=== PATIENT | female | born 1975 | race Two or more races ===

== ENCOUNTER 2025-05-20 08:51 | Day surgery (SDC) | payer MEDICARE, MEDICAID, SELFPAY ==
[2025-05-16 12:02] VITALS: BMI 33.3
--- OUTSIDE RECORDS SUMMARY | 2025-05-18 00:42 | XMS_ITS | Clinical Summary ---
Author Organization [facility] Address [address] [place] [address] Care Team Providers Care Executive Secretary Name Role Phone Raina Oliver MD Primary Care Provider [phone] Allergies Active Allergy Reactions Criticality Noted Date Comments Diphenhydramine 07/08/2020 Morphine 09/06/2019 Oxycodone-Acetaminophen 09/06/2019 Ketorolac Tromethamine 09/06/2019 Medications Medication Sig Dispensed Refills Start Date End Date Status gabapentin (NEURONTIN) 100 MG capsule TAKE 1 CAPSULE BY MOUTH THREE TIMES A DAY IF NEEDED FOR MUSCLE ACHES 0 08/15/2019 Active ibuprofen (ADVIL,MOTRIN) 800 MG tablet Take 800 mg by mouth. 0 07/18/2019 Active metoprolol succinate (TOPROL-XL) 24 hr tablet 25 mg Take 1 tablet (25 mg total) by mouth. 0 09/05/2019 Active omeprazole (PriLOSEC) 20 MG capsule Take 20 mg by mouth daily. 0 08/15/2019 Active sertraline (ZOLOFT) 50 MG tablet Take 1 tablet (50 mg total) by mouth. 0 09/05/2019 Active valACYclovir (VALTREX) 500 MG tablet 0 06/22/2019 Active ferrous sulfate 325 (65 FE) MG tablet Take 1 tablet (325 mg total) by mouth every morning with breakfast. 30 tablet 0 10/18/2019 Active cyclobenzaprine (FLEXERIL) 10 MG tablet Take 1 tablet (10 mg total) by mouth 3 (three) times a day as needed for muscle spasms. 0 Active acetaminophen (Tylenol) 325 MG tablet Take 2 tablets (650 mg total) by mouth every 6 (six) hours as needed for pain. 0 Active Active Problems Problem Noted Date Diagnosed Date Iron deficiency anemia 07/18/2019 Atypical chest pain 06/07/2019 Overview: Overview: Normal exercise stress test 05/2019 Obesity (BMI 30-39.9) 06/20/2017 Anogenital herpes simplex virus (HSV) infection 12/06/2016 Diverticulosis 12/06/2016 Sjogren's syndrome 08/12/2015 Overview: Overview: Follows with rheumatology Hydroxychloroquine 2018 - stopped GI side effects Methotrexate SC caused palpitations stopped by patients Anxiety and depression 08/08/2014 Overview: Overview: Following with psychology Fatty liver disease, nonalcoholic 08/08/2014 Overview: Overview: Hx of elevated LFTs Fibromyalgia 08/08/2014 Overview: Overview: Following with rheumatology and used to follow with Dr Pagan from pain management GERD (gastroesophageal reflux disease) 5 Hyperlipidemia 08/08/2014 Hypertension 08/08/2014 Insomnia 08/08/2014 Lumbar herniated disc 08/08/2014 Overview: Overview: Used to follow with Dr. Pagan at [facility] pain management, follows with physiatry lumbar epidural steroid injections has left sided radiculopathy recent MRI 04/2017 PCOS (polycystic ovarian syndrome) 08/08/2014 Vitamin D deficiency 08/08/2014 Family History Medical History Relation Name Comments Other Brother drug overdose Hypertension Father Stroke Father Hypertension Mother Stroke Mother Heart attack Sister Stroke Sister Relation Name Status Comments Brother Daughter Alive Father Alive Mother Alive Sister Alive Son Alive Social History Tobacco Use Types Packs/Day Years Used Date Smoking Tobacco: Never Smokeless Tobacco: Never Alcohol Use Standard Drinks/Week Comments No 0 (1 standard drink = 0.6 oz pur e alcohol) Sex and Gender Information Value Date Recorded Sex Assigned at Not on file Gender Identity Not on file Sexual Orientation Not on file Job Start Date Occupation Industry Not on file Not on file Not on file Last Filed Vital Signs Vital Sign Reading Time Taken Comments Blood Pressure 157/95 04/02/2024 12:40 PM EDT Pulse 81 04/02/2024 12:40 PM EDT Temperature 36.4 C (97.6 F) 04/02/2024 12:40 PM EDT Respiratory Rate - - Oxygen Saturation 100% 04/02/2024 12:40 PM EDT Inhaled Oxygen Concentration - - Weight 75.8 kg (167 lb) 04/02/2024 12:40 PM EDT Height 149.9 cm (4' 11 ) 04/02/2024 12:40 PM EDT Body Mass Index 33.73 04/02/2024 12:40 PM EDT Plan of Treatment Health Maintenance Due Date Last Done Comments Hepatitis B Vaccines (1 of 3 - 3-dose series) 1975 Hepatitis C Screening 1975 COVID-19 Vaccine (#1) 04/11/1976 Pneumococcal Vaccine (1 of 2 - PCV) 10/10/1981 Depression Screening 1987 BMI Counseling 10/10/1993 Preventative Health Evaluation 10/10/1993 DTap / Tdap / Td (1 - Tdap) 10/10/1994 Cervical Cancer Screening (P ap Smear) 10/10/1996 Colon Cancer Screening (Colonoscopy) 10/10/2020 Influenza Vaccine (#1) 2025 RSV Ped < 20 months Aged Out No longe r eligible based on patient's age to complete this topic Care Teams Executive Secretary Relationship Specialty Start Date End Date Raina Oliver MD [address] [facility] [address] [place] [address] PCP - General Internal Medicine 03/19/24
--- NOTE | ~2025-05-20 | FL_ITS ---
EXAMINATION: XR FLUOROSCOPY WITH IMAGES CLINICAL INFORMATION: Left L4 on L5 transforaminal KOBY COMPARISON: None available. TECHNIQUE: Fluoroscopy time: 19 seconds DAP: 5.6 mGycm2 Images: 1 FINDINGS: Fluoroscopy provided for procedure. There is a needle projected at the laterally at the level of the L4 and vertebral bodies with contrast injection. FL/FL guidance in OR IMPRESSION: Fluoroscopy provided for procedure. See procedure note for details. Electronically signed by: Lexx Reddy MD 05/20/2025 11:11 AM JORDYN
[2025-05-20] MEDS: Lactated Ringers 1,000 ML 80 ML IVCONT (09:36)
--- NOTE | 2025-05-20 09:45 | MHC.SHP ---
Pre-Procedural Eval Section A - 24 Hr Update-Section A only Date of Service: 05/20/25 The patient is an INPATIENT: No Section B - Complete if H&P > 30 days Chief Complaint: Radiculopathy, lumbar region Details of Present Illness: Chronic lower back pain and lumbar radiculitis Relevant Family History (Specify if Yes): No Relevant Social History: None Present Medications: see Short Stay Collaborative assessment Medical History: No relevant PMH History of Previous Operations: No relevant previous surgery Allergies: Allergies Allergy/AdvReac Type Severity Reaction Status Date / Time diphenhydramine Allergy Severe Difficulty Verified 05/20/25 09:07 Breathing ketorolac Allergy Severe Difficulty Verified 05/20/25 09:07 Breathing morphine Allergy Weakness, Verified 05/20/25 09:07 pre-syncope oxycodone Allergy Unknown Verified 05/20/25 09:07 Review of Systems Sugical H&P ROS: Negative: Constitution, Cardiovascular, Respiratory, Neurological, Psychiatric, Hem-Onc, Allergic/Immunologic, Gastrointestinal, Genitourinary, Musculoskeletal, Integumentary, Endocrine and Eyes/Ears/Nose/Throat Exam Surgical H&P Exam: Normal: HEENT, Normal: Heart, Normal: Lungs, Normal: Extremities, Normal: Abdomen, Normal: Skin and Normal: Neurological Plan Diagnosis/Plan: Unchanged I have reviewed the history and physical and performed a pertinent physical examination on my patient. No changes have occurred unless specified. Time Spent With Patient Time: Total time managing care of this patient today ____ minutes.
[2025-05-20 09:46] VITALS: BP 174/89; PULSE 86; RESP 18; TEMP 36.7; O2SAT 96
--- NOTE | 2025-05-20 09:46 | W.PM.OPN ---
Operative Note Operative Note Date of Service: 05/20/25 Narrative: Procedure performed: Left L4 and L5 transforaminal epidural steroid injection Preop diagnosis: Lumbar radiculitis Postop diagnosis: The same Anesthesia: Mac After informed consent was obtained, patient was placed on the procedure table in a prone position. Skin over lumbosacral area was prepped and draped in usual sterile manner. Left L4 pedicle was visualized utilizing fluoroscopy. Five inch 22 gauge spinal needle was introduced percutaneously and advanced towards the pedicle at about 6 o'clock position. Once level of neural foramina was reached, needle placement was verified utilizing 3 cc of Omnipaque contrast solution. Excellent flow through the neural foramina and epidural spread was identified without evidence of vascular uptake. Total volume of 6 cc containing 2 cc of 1% lidocaine, 40 mg of triamcinolone and normal saline solution were injected after negative aspiration for blood and cerebrospinal fluid. Identical procedure was repeated at left L5 level. Radiation exposure was documented in the chart.
--- NOTE | 2025-05-20 10:26 | HO.ANESPROP2 ---
[facility] Active Problems Active Problems: All Active Problems Lumbar radiculitis (Acute) Past Medical History Medical History Sjogren's syndrome SOB (shortness of breath) PONV (postoperative nausea and vomiting) PCOS (polycystic ovarian syndrome) Neuromuscular disorder NAFL (nonalcoholic fatty liver) Motion sickness Joint pain IBS (irritable bowel syndrome) Irregular heart beat Hypoglycemic disorder HTN (hypertension) GERD (gastroesophageal reflux disease) Genital herpes Dysphasia Depression Cataracts, bilateral Macular degeneration Arthritis Anxiety History of anemia Colitis Dizziness Chronic fatigue Fibromyalgia History of esophageal stricture Lupus Lumbar radiculopathy Functional capacity: uses cane/walker Patient : No Family History Family history of problems with anesthesia: No Surgical History Surgical History Hx of tubal ligation History of tonsillectomy History of bilateral oophorectomy Hx of cholecystectomy (~1991) Hx of reduction mammoplasty History of esophagogastroduodenoscopy (EGD) (03/2023) Hx of colonoscopy (09/2020) History of selective injection of anesthetic agent around lumbar nerve root Hx of hysterectomy (2020) History of Problems with Anesthesia: No Social History Social History Are you a primary home care specialist to a significant other at home: No Do you presently have visiting nurse or other home services: No Patient Tobacco Use Status: Never used Tobacco Have you been hit, kicked, punched, or otherwise hurt by someone within the past year? If so, by whom?: No Are you DNR?: No Advance Directives: No Advance Directives Information Provided: Yes Meds Allergies Allergy/AdvReac Type Severity Reaction Status Date / Time diphenhydramine Allergy Severe Difficulty Verified 05/20/25 09:07 Breathing ketorolac Allergy Severe Difficulty Verified 05/20/25 09:07 Breathing morphine Allergy Weakness, Verified 05/20/25 09:07 pre-syncope oxycodone Allergy Unknown Verified 05/20/25 09:07 Active Medications: Current Medications Lactated Ringer's (Lr) 1,000 mls @ 80 mls/hr IVCONT .[id number] KATELYNN Last Admin: 05/20/25 09:36 Dose: 80 mls/hr Ondansetron HCl (Ondansetron Hcl 4 Mg/2 Ml Vial) 4 mg IVPUSH ONCE PRN PRN Reason: Nausea Home Medications ?Medication ?Instructions ?Recorded ?Confirmed ?Last Taken ?Type acetaminophen 500 mg capsule 1,000 mg PO TID PRN Pain 05/16/25 05/16/25 Unknown History cevimeline 30 mg capsule (Evoxac) 1 cap PO TID 05/16/25 05/16/25 Unknown History cyanocobalamin (vitamin B-12) 1,000 mcg PO DAILY 05/16/25 05/16/25 Unknown History 1,000 mcg tablet (Vitamin B-12) cyclobenzaprine 10 mg tablet 10 mg PO BID PRN Muscle Spasm 05/16/25 05/16/25 Unknown History diclofenac sodium 1 % topical gel 2 g topical BID 05/16/25 05/16/25 Unknown History dicyclomine 10 mg capsule 10 mg PO QID 05/16/25 05/16/25 Unknown History ergocalciferol (vitamin D2) 50,000 50,000 unit PO QWEEK 05/16/25 05/16/25 Unknown History unit tablet estradiol 1 mg tablet 1 mg PO DAILY 05/16/25 05/16/25 Unknown History gabapentin 100 mg capsule 100 mg PO TID 05/16/25 05/16/25 Unknown History loperamide 2 mg capsule 2 mg PO Q6H PRN Diarrhea 05/16/25 05/16/25 Unknown History lorazepam 1 mg tablet (Ativan) 1 mg PO DAILY PRN Anxiety 05/16/25 05/16/25 Unknown History magnesium oxide 400 mg PO DAILY 05/16/25 05/16/25 Unknown History metoprolol succinate 50 mg 50 mg PO DAILY 05/16/25 05/16/25 Unknown History tablet,extended release 24 hr pantoprazole 40 mg tablet,delayed 40 mg PO DAILY 05/16/25 05/16/25 Unknown History release sertraline 50 mg tablet 50 mg PO DAILY 05/16/25 05/16/25 Unknown History simethicone 80 mg chewable tablet 80 mg PO BEDTIME 05/16/25 05/16/25 Unknown History tizanidine 4 mg capsule 4 mg PO BEDTIME PRN Pain 05/16/25 05/16/25 Unknown History wheat dextrin 3 gram/3.5 gram oral 1 packet PO DAILY 05/16/25 05/16/25 Unknown History powder packet Exam Height,Weight and Vital Signs: Height 4 ft 11 in Weight 165 lb Last Vital Signs Temp 98.0 F 05/20/25 09:46 Pulse 86 05/20/25 09:46 Resp 18 05/20/25 09:46 BP 174/89 H 05/20/25 09:46 Pulse Ox 96 05/20/25 09:46 O2 Del Method Room Air 05/20/25 09:46 Airway Mallampati Class: III TM Dist: >3cm Neck ROM: Full Loose/Missing/Broken Teeth: No Heart: RRR Lungs: CTA Assessment and Plan Assessment Anesthesia Assessment: Anesthesia Plan Discussed Final Anesthetic Review Family History of Problems with Anesthesia: No History of Problems with Anesthesia: No NPO: Yes ASA Class: III Final Preanesthetic Review: No Changes in Pt Med Stat, Meds/Allgs Chart Reviewed, Consent Obtained/Reviewed and Anes Risks/Benef Reviewed Patient Risk: Low Procedure Risk: Low Anesthetic Plan Anesthetic Plan: MAC: Disposition: Standard PACU
[2025-05-20 10:56] VITALS: BP 156/87; PULSE 88; RESP 20; TEMP 36.6; O2SAT 95
[2025-05-20 11:10] VITALS: BP 141/80; PULSE 94; RESP 19; O2SAT 100
== END 2025-05-20 12:07 | disposition home or self-care (01) ==
PROVIDERS: PCP Internal Medicine; Visit Provider Physical Medicine & Rehabilitation
PROC: (CPT 64483; principal; 2025-05-20 09:30)
DX: M54.16 Radiculopathy, lumbar region (principal); I10 Essential (primary) hypertension; M25.552 Pain in left hip; G81.94 Hemiplegia, unspecified affecting left nondominant side; M32.9 Systemic lupus erythematosus, unspecified; I49.8 Other specified cardiac arrhythmias; G62.9 Polyneuropathy, unspecified; K76.0 Fatty (change of) liver, not elsewhere classified; K75.9 Inflammatory liver disease, unspecified; K58.9 Irritable bowel syndrome, unspecified; M79.7 Fibromyalgia; M19.90 Unspecified osteoarthritis, unspecified site; R53.82 Chronic fatigue, unspecified; Z79.899 Other long term (current) drug therapy; Z99.89 Dependence on other enabling machines and devices; Z88.5 Allergy status to narcotic agent; Z88.8 Allergy status to other drugs, medicaments and biological substances; Z90.49 Acquired absence of other specified parts of digestive tract; Z98.890 Other specified postprocedural states; Z90.710 Acquired absence of both cervix and uterus
CPT/HCPCS: 64483; 64484; J1100; J2003; J2250; J2405; J2704; J3301; Q9967

== ENCOUNTER → 2025-05-20 08:51 | Outpatient (BNV) | payer MEDICARE, MEDICAID, SELFPAY | PROVIDERS: PCP Internal Medicine; Visit Provider Physical Medicine & Rehabilitation | DX: M54.16 Radiculopathy, lumbar region (principal) | CPT/HCPCS: 64483; 64484 ==